=== PATIENT | male | born 2000 | race African-American/Black ===

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

== ENCOUNTER 2021-03-17 02:00 | Outpatient (CLI) | payer OTHER ==
[~2021-03-17 02:00] MED LIST changes: +DOLOGESIC-DF 51 EACH PO
== END 2021-03-17 02:30 | disposition home or self-care (01) ==
LOC: PPH VACUNA 02:00
PROVIDERS: ATTEND Emergency Medicine Pediatric Emergency Medicine
DX: Z23 Encounter for immunization (principal)

== ENCOUNTER 2022-03-07 20:56 | Emergency (ER) | payer OTHER ==
[~2022-03-07] VITALS: Ht 175.3 cm; Wt 59.0 kg
[2022-03-07] MEDS ORDERED: PERCOCET 10-321 EACH PO (21:50)
[2022-03-07] MEDS ORDERED: AUGMENTIN XR 11 EACH PO (21:50)
== END 2022-03-07 22:26 | disposition home or self-care (01) ==
LOC: EMR PED 20:56
DX: K08.89 Other specified disorders of teeth and supporting structures (principal)

== ENCOUNTER 2022-05-30 20:15 | Emergency (ER) | payer OTHER ==
[~2022-05-30] VITALS: Ht 175.3 cm; Wt 59.0 kg
[~2022-05-30 20:15] MED LIST changes: +AUGMENTIN XR 11 EACH PO; +PERCOCET 10-321 EACH PO
== END 2022-05-30 20:53 | disposition home or self-care (01) ==
LOC: ER 20:15
DX: J10.1 Influenza due to other identified influenza virus with other respiratory manifestations (principal); J02.9 Acute pharyngitis, unspecified; R53.81 Other malaise; G44.89 Other headache syndrome